=== PATIENT | female | born 1945 | race Caucasian/White ===

== ENCOUNTER 2018-09-19 12:21 | Inpatient (IN) ==
[2018-09-19] MEDS ORDERED: IOPAMIDOL 100 ML BOTTLE IV ONE (12:22)
--- NOTE | 2018-09-19 13:37 | XRay Report ---
CLINICAL INFORMATION: NG placement. 54cm at the nare. COMPARISON: 09/19/2008 1149 hours FINDINGS: NG tip overlies the expected location of the distal gastric body. Stomach and multiple loops of proximal small bowel remain moderately dilated compatible with a high-grade distal jejunal obstruction. Distal small bowel and colon are relatively decompressed. No free air IMPRESSION: NG tube overlying the distal gastric body. High-grade distal jejunal obstruction - stable Interpreted and Authenticated by: Anirudh Carlton 09/19/18
[2018-09-19 14:00] LABS: Basophils # (Auto) 0 K/mcL (0.0-0.3); Basophils % (Auto) 0.1 % (0.0-2.0); Eosinophils # (Auto) 0 K/mcL (0.0-0.7); Eosinophils % (Auto) 0 % (0.0-7.0); Granulocytes % (Auto) 85.8 % (38.0-78.0); Lymphocytes # (Auto) 0.8 K/mcL (1.5-4.8); Lymphocytes % (Auto) 7.2 % (15.5-49.0); Mean Cell Volume 94.9 fL (80.0-100.0); Mean Corpuscular HGB Conc 33.3 g/dL (31.0-36.0); Mean Corpuscular Hemoglobin 31.6 pg (26.0-34.0); Monocytes # (Auto) 0.7 K/mcL (0.1-0.9); Monocytes % (Auto) 6.9 % (1.0-12.0); Platelet Count 244 K/mcL (140-440); RBC 5.38 M/mcL (4.00-5.20); Red Cell Distribution Width 15.5 % (11.5-14.5)
[2018-09-19 14:18] LABS: ALT/SGPT 22 U/l (0-40); Albumin 4.3 gm/dL (3.2-5.2); Albumin/Globulin Ratio 1.7 (1.0-2.3); Alkaline Phosphatase 53 U/L (39-117); Blood Urea Nitrogen 10 mg/dl (8-23); Lipase 54 U/L (7-60)
--- NOTE | 2018-09-19 14:30 | Emergency Department Note ---
Abdominal Pain HPI - General Chief Complaint: Abdominal Pain Stated Complaint: abd pain Time Seen by Provider: 09/19/18 12:29 Source: patient Mode of arrival: ambulatory Limitations: no limitations - History of Present Illness HPI Narrative: 72-year-old female presents with abdominal pain and nausea and vomiting. This all started Wednesday morning when she was flying back from [place]. States she had a little lot of abdominal pain and then bowel movements extremely frequently and since she was flying back she took some Pepto. States ever since that time anytime she tries to eat or drink anything she vomits and she has constant abdominal pain. No fever or chills. No diarrhea. No cough or cold symptoms. No other home treatments since Wednesday. Associated symptoms: Reports: nausea, vomiting. Denies: fever, chills, dysuria - Related Data Home Medications Medication Instructions Recorded Confirmed cholecalciferol (vitamin D3) 1,000 units PO DAILY 03/12/16 09/19/18 folic acid 2 tab PO DAILY 03/12/16 09/19/18 glucosamine HCl 1 tab PO QDAY 03/12/16 09/19/18 multivitamin tablet 1 tab-cap PO QDAY 03/12/16 09/19/18 omega-3 fatty acids-fish oil 1 tab PO DAILY 03/12/16 09/19/18 aspirin 81 mg tablet,delayed 81 mg PO QDAY 03/31/16 09/19/18 release hydroxychloroquine 200 mg tablet 400 mg PO BID tab 03/31/16 09/19/18 methotrexate sodium 2.5 mg tablet 2.5 mg PO .COMPLEX tab 04/16/17 09/19/18 polyethylene glycol 3350 17 gram 17 g PO QDAY 01/12/18 09/19/18 oral powder packet Previous Rx's Medication Instructions Recorded E2-E3 20/80 1mg/g 0.5 g TOPICAL .QOD #60 g 01/21/18 levothyroxine 50 mcg tablet 50 mcg PO QDAY #30 tab 04/11/18 atorvastatin 40 mg tablet 40 mg PO QDAY #90 tab 06/20/18 mirabegron ER 25 mg 25 mg PO QDAY #30 tab 07/01/18 tablet,extended release 24 hr Allergies Allergy/AdvReac Type Severity Reaction Status Date / Time latex Allergy Unknown Unknown Verified 09/19/18 12:25 morphine Allergy Unknown Unknown Verified 09/19/18 12:25 tape Allergy Unknown Rash Uncoded 09/07/18 08:48 Review of Systems All systems ED: reviewed and negative except as stated. Abdominal Pain PMH - Past Medical History [facility] Narrative: Medical History (Last Reviewed 09/19/18 @ 11:30 by Ruthie Arita DO) Constipation, chronic (Chronic) Encounter for wellness examination (Chronic) Geriatric health maintenance (Chronic) Superficial injury of cornea (Chronic) Partial blindness (Chronic) Osteoarthritis (Chronic) Hypothyroidism (Chronic) High cholesterol (Chronic) Hearing loss (Chronic) Vitreous floater (Chronic) Atrophic vaginitis (Chronic) Acid reflux (Chronic) Acute maxillary sinusitis (Acute) Thyroid disorder (Chronic) Pain in joint of left knee (Chronic) Hyperlipidemia (Chronic) Arthritis (Chronic) Rheumatoid arthritis (Chronic) History of tobacco use (Chronic) Past Surgical History (Last Reviewed 09/07/18 @ 11:07 by JIM Asif) H/O breast biopsy (Chronic) History of appendectomy (Chronic) History of colonoscopy (Chronic) History of hysterectomy (Chronic) History of nasal surgery (Chronic) History of right breast biopsy (Chronic) S/P cervical spinal fusion (Chronic) Medical history: Reports: arthritis, hyperlipidemia, thyroid disease - Social History Smoking status: Never smoker Alcohol use: Reports: Rarely Drug use: Reports: none Physical Exam Limitations: no limitations General appearance: alert, in no apparent distress Head: atraumatic, normocephalic, normal inspection Eye: Present: normal appearance. Absent: conjunctival injection ENT: mucous membranes moist Chest: Present: symmetric chest wall rise Respiratory: Present: normal lung sounds bilaterally. Absent: respiratory distress, rales/crackles, accessory muscle use Cardiovascular: Present: regular rate, normal heart sounds Abdominal: Present: soft, distention (Mild diffuse abdominal distention), tenderness (Diffuse abdominal tenderness), hypoactive bowel sounds. Absent: mass Extremities: Present: normal inspection. Absent: pedal edema Neurological: Present: alert, oriented X3 Psychiatric: Present: normal affect, normal mood Skin: Present: warm, dry, intact, normal color. Absent: rash, cyanosis, diaphoresis, erythema Course Course Narrative: At [address] Saeed with surgery who agrees to accept the patient. Vital Signs Temperature 98.1 F 09/19/18 12:21 Pulse Rate 80 09/19/18 12:21 Respiratory Rate 18 09/19/18 12:21 Blood Pressure 149/96 09/19/18 12:21 Pulse Oximetry (%) 98 09/19/18 12:21 Temperature 98.1 F 09/19/18 12:21 Pulse Rate 71 09/19/18 14:09 Respiratory Rate 18 09/19/18 12:21 Blood Pressure 157/94 09/19/18 14:09 Pulse Oximetry (%) 95 09/19/18 14:09 Abdominal Pain - Lab Data Lab results reviewed: Yes I reviewed the patient's lab results. Result diagrams: 09/19/18 13:15 09/19/18 13:15 Lab Results 09/19/18 09/19/18 Range/Units 13:15 13:15 WBC 10.6 (4.5-11.0) K/mcL RBC 5.38 H (4.00-5.20) M/mcL Hgb 17.0 H (12.0-15.0) g/dL Hct 51.1 H (36.0-48.0) % POC Hct 54.0 H (36.0-48.0) % MCV 94.9 (80.0-100.0) fL MCH 31.6 (26.0-34.0) pg MCHC 33.3 (31.0-36.0) g/dL RDW 15.5 H (11.5-14.5) % Plt Count 244 (140-440) K/mcL MPV 8.8 (7.4-10.4) fL Gran % 85.8 H (38.0-78.0) % Lymph % (Auto) 7.2 L (15.5-49.0) % Dodge % (Auto) 6.9 (1.0-12.0) % Eos % (Auto) 0 (0.0-7.0) % Baso % (Auto) 0.1 (0.0-2.0) % Gran # 9.1 H (1.8-8.0) K/mcL Lymph # (Auto) 0.8 L (1.5-4.8) K/mcL Dodge # (Auto) 0.7 (0.1-0.9) K/mcL Eos # (Auto) 0 (0.0-0.7) K/mcL Baso # (Auto) 0 (0.0-0.3) K/mcL POC Sodium 136 (133-145) mmol/L Sodium 134 (133-145) mmol/L POC Potassium 3.5 (3.3-5.1) mmol/L Potassium 3.7 (3.3-5.1) mmol/L POC Chloride 95 L (96-108) mmol/L Chloride 94 L (96-108) mmol/L Carbon Dioxide 26 (22-30) mmol/L POC Total CO2 27 (22-30) mmol/L Anion Gap 14.0 (8-16) POC BUN 11 (8-23) mg/dl BUN 10 (8-23) mg/dl Creatinine 0.7 (0.6-1.1) mg/dl POC Creatinine 0.7 (0.6-1.1) mg/dl GFR Calculation 87 Glucose 120 H (70-105) mg/dL POC Glucose 121 H (70-105) mg/dL Calcium 9.7 (8.6-10.4) mg/dl POC WB Ioniz Calcium 1.17 (1.16-1.32) mmol/L Total Bilirubin 2.4 H (0.0-1.0) mg/dL AST 26 (0-37) U/l ALT 22 (0-40) U/l Alkaline Phosphatase 53 (39-117) U/L Total Protein 6.9 (5.9-8.4) gm/dL Albumin 4.3 (3.2-5.2) gm/dL Globulin 2.6 (2.2-3.7) gm/dL Albumin/Globulin Ratio 1.7 (1.0-2.3) Lipase 54 (7-60) U/L - Radiology Data Radiology results reviewed: Yes I reviewed the patient's radiology results. Disposition Pt seen by [facility] [facility]/PA only: Yes Clinical Impression: Small bowel obstruction, Nausea & vomiting, Abdominal pain Disposition: Xfer As Inpt ([facility]) Condition: Fair Referrals: Kisha Viramontes DO [Primary Care Provider] - Angelita Saeed MD [Physician] - Time of Disposition: 14:32
--- NOTE | 2018-09-19 14:54 | Cat Scan Report ---
CLINICAL INFORMATION: Abdominal pain. Small bowel obstruction COMPARISON: Abdomen and pelvic CT 04/03/2016. TECHNIQUE: Following enteric contrast, 80 cc of Isovue-300 were injected intravenously, and 60 seconds later, 0.625 mm helical slices were obtained from the mid heart through the subtrochanteric regions. Following reconstruction, 2.5 mm sagittal, coronal and axial reformatted images were processed and reviewed at bone, lung and soft tissue windows. Five minutes later, 0.625 mm helical slices were obtained from the mid heart through the kidneys and viewed at soft tissue windows.The exam was performed using radiation dose optimization techniques including, but not limited to, automated exposure control, adjustment of the mA and/or kV according to patient size and use of iterative reconstruction technique. FINDINGS: Lung bases show only minor atelectasis. No effusion. Visualized heart is mildly enlarged. Images through the abdomen show minimal fatty change within the liver. There is a 1 cm cyst in the lateral segment left hepatic lobe, but no significant focal hepatic lesions. The gallbladder and bile ducts are normal: CBD is 5 mm. Both kidneys, adrenal glands, spleen, pancreas and aorta, including aortic branches, are normal in size, configuration and attenuation without focal lesion. Images through the pelvis show urinary bladder to be unremarkable.. Uterus is surgically absent. NG tube is in satisfactory position with the tip in the gastric antrum. The stomach, duodenum and multiple loops of jejunum are moderately dilated to the distal jejunum where there is abrupt narrowing due to adhesion or stricture. The distal jejunum and ileum are moderately decompressed. Moderate free fluid is noted in the abdomen and pelvis is compatible with third spacing. There is no free air or adenopathy. Bone windows show only degeneration in the lower lumbar spine IMPRESSION: High-grade distal jejunal obstruction ostensibly related to adhesion or stricture. Moderate free fluid compatible early third spacing. No evidence of free air. NG tube in satisfactory position within the stomach Interpreted and Authenticated by: Anirudh Carlton 09/19/18
[2018-09-19] MEDS ORDERED: ONDANSETRON 4 MG/2 ML VIAL IV PRN (15:01)
[2018-09-19] MEDS ORDERED: HYDROmorphone 2 MG/ML VIAL IV PRN (15:09)
[2018-09-19] MEDS ORDERED: HYDROmorphone 2 MG/ML VIAL IV ONE (15:17)
[2018-09-19] MEDS: 0.9 % SODIUM CHLORIDE 1,000 ML IV SCH ×2 (15:48→22:19)
--- NOTE | 2018-09-19 16:04 | Emergency Department Note ---
ED Note Addendum Note Addendum: I saw this patient with Chacha FERNANDEZ. I agree with her evaluation management documentation. In particular I reviewed her x-ray and CT scan and recommended admission
--- NOTE | 2018-09-19 16:09 | General Surg History&Physical ---
History of Present Illness Patient information: Note initiated : 09/19/18 at 4:06 pm Service Date, if different from initiated Date: [] Patient: Isaura Jarrell a 72 y/o F admitted on 09/19/18 for abd pain. Chief Complaint: [aabdominal pain nausea and vomiting] HPI: Ms. Jarrell is a 72 year old F developed recurrent severe abdominal pain on the Wednesday morning. This was followed by nausea and she had multiple loose bowel movements over the next few hours.. By midday her bowel movements ceased but she was still having pain.. The pain is improved during the night and the patient flew back from [place] to home on yesterday. She stayed in bed yesterday but her pain became much worse. This morning she tried to eat and had multiple episodes of vomiting. Her pain also increased. This prompted her to come to the [facility] where it was noted that she had a distended abdomen.. She was referred to the emergency room where x- rays revealed multiple dilated loops of small bowel.CT scans confirm dilated loops of proximal small bowel suggestive of small bowel obstruction.. Patient has had appendectomy and hysterectomy abdominal procedures in the past. She had a normal colonoscopy in June 2017. Review of Systems - Constitutional malaise, weakness, no chills, no fever(s) - EENT Eyes: bilateral: blurred vision, loss of vision Ears: bilateral: decreased hearing Nose, mouth and throat: abnormal hearing, no dizziness, no neck pain, no throat swelling - Breasts no mass, no swelling - Cardiovascular no chest pain at rest, no dyspnea on exertion, no palpatations, no rapid heart rate, no syncope - Respiratory no cough, no dyspnea on exertion, no chest congestion, no excessive phlegm production - Gastrointestinal abdominal pain, belching, bloating, change in bowel habits, change in stool character, constipation, heartburn, loose stools, nausea, vomiting - Genitourinary Genitourinary: post void dribbling, urinary incontinence, no difficulty urinating, no urinary hesitancy, no urinary urgency - Musculoskeletal arthralgias, myalgias - Integumentary no changing lesions, no non-healing lesions, no pruritus, no rash - Neurological no abnormal gait, no abnormal hearing, no confusion, no dizziness, no numbness, no syncope, no tremor(s), no vertigo - Psychiatric no anxiety, no depression - Endocrine no cold intolerance, no fatigue, no palpitations - Hematologic/Lymphatic no easy bleeding, no easy bruising, no lymphadenopathy - Allergic/Immunologic no tongue swelling, no throat swelling, no uticaria, no wheezing, no lip swelling Medications and Allergies Home Medications Medication Instructions Recorded Confirmed Type cholecalciferol (vitamin D3) 1,000 units PO DAILY 03/12/16 09/19/18 History folic acid 2 tab PO DAILY 03/12/16 09/19/18 History glucosamine HCl 1 tab PO QDAY 03/12/16 09/19/18 History multivitamin tablet 1 tab-cap PO QDAY 03/12/16 09/19/18 History omega-3 fatty acids-fish oil 1 tab PO DAILY 03/12/16 09/19/18 History aspirin 81 mg tablet,delayed 81 mg PO QDAY 03/31/16 09/19/18 History release hydroxychloroquine 200 mg tablet 400 mg PO BID tab 03/31/16 09/19/18 History methotrexate sodium 2.5 mg tablet 2.5 mg PO .COMPLEX tab 04/16/17 09/19/18 History polyethylene glycol 3350 17 gram 17 g PO QDAY 01/12/18 09/19/18 History oral powder packet E2-E3 20/80 1mg/g 0.5 g TOPICAL .QOD #60 g 01/21/18 09/19/18 Rx levothyroxine 50 mcg tablet 50 mcg PO QDAY #30 tab 04/11/18 09/19/18 Rx atorvastatin 40 mg tablet 40 mg PO QDAY #90 tab 06/20/18 09/19/18 Rx mirabegron ER 25 mg 25 mg PO QDAY #30 tab 07/01/18 09/19/18 Rx tablet,extended release 24 hr Allergies Allergy/AdvReac Type Severity Reaction Status Date / Time morphine Allergy Mild Rash Verified 09/19/18 15:24 latex Allergy Unknown Unknown Verified 09/19/18 12:25 tape Allergy Unknown Rash Uncoded 09/07/18 08:48 Exam Temp Pulse Resp BP Pulse Ox 98.1 F 83 18 153/91 97 09/19/18 15:41 09/19/18 15:41 09/19/18 15:41 09/19/18 15:41 09/19/18 15:41 - General physical appearance well developed, well nourished, no distress - Eyes PERRL, normal ocular movement, other (decreased vision) - ENT normal pinna, normal nares, normal mucosa, no congestion, decreased hearing - Head Head exam IM: Present: atraumatic, normal inspection, normocephalic - Neck no masses, no bruits, trachea midline, no lymphadenopathy, no venous distension - Cardiovascular Cardiovascular exam IM: Present: normal rate and rhythm, RRR, +S1, +S2. Absent : irregular rhythm, JVD, tachycardia - Respiratory normal expansion, normal respiratory effort, clear to auscultation - Abdomen Abdomen: Present: soft, bowel sounds, distended (abdomen is distended but with good active bowel sounds;; she has midabdominal tenderness but without guarding or rebound. No mass noted) Hernia: Present: none - Genitourinary Present: normal external genitalia - Integumentary Present: no rash, no growths, no abnormal pigmentation - Neurologic Present: normal coordination, normal sensation - Musculoskeletal Present: normal gait, normal posture - Psychiatric Present: oriented to time, oriented to person, oriented to place, speech is normal, memory intact Assessment and Plan (1) Partial obstruction of small intestine Small bowel follow-through will be done tonight since patient had multiple bowel movements on yesterday associated with the onset of her symptoms Nasogastric decompression will be carried out while the small bowel follow- through has been completed Status: Acute (2) Chronic idiopathic constipation Status: Acute (3) Osteoarthritis Continue home medications once her intestinal problem is corrected Status: Chronic
--- NOTE | 2018-09-19 16:18 | XRay Report ---
CLINICAL INFORMATION: PREOP EVALUATION COMPARISON: 06/29/2017 FINDINGS: Heart size is accentuated by rightward rotation and within normal limits. NG tube overlies the gastric antrum. Tortuous thoracic aorta is noted remainder the mediastinum and pulmonary vessels are normal. Is minor bibasilar atelectasis. No effusions IMPRESSION: Mild bibasilar atelectasis. Interpreted and Authenticated by: Anirudh Cralton 09/19/18
[2018-09-19] MEDS: HYDROmorphone 2 MG/ML VIAL IV PRN ×4 (16:42→22:58)
[2018-09-19] MEDS: PIPERACILLIN SODIUM/TAZOBACTAM 3.375 GM in DEXTROSE 5% IN WATER 50 ML IV SCH ×2 (17:19→21:18)
[2018-09-19] MEDS: METOCLOPRAMIDE 10 MG/2 ML VIAL IV SCH (17:58)
[2018-09-19 18:48] LABS: Appearance,Urine CLEAR; Bilirubin,Urine NEG (NEG); Color,Urine YELLOW; Glucose,Urine (UA) NEGATIVE (NEG); Leukocyte Esterase,Urine NEG /uL (NEG); Protein,Urine NEG (NEG); Specific Gravity,Urine 1.028 (1.000-1.035); Urine Blood NEG mg/dL (<0.03); Urobilinogen,Urine NEG (NEG)
[2018-09-19] MEDS: 0.9 % SODIUM CHLORIDE 10 ML SYRINGE IV SCH (22:18)
[2018-09-20] MEDS: 0.9 % SODIUM CHLORIDE 1,000 ML IV SCH ×4 (00:58→17:04)
[2018-09-20] MEDS: HYDROmorphone 2 MG/ML VIAL IV PRN ×6 (00:59→12:21)
[2018-09-20] MEDS: METOCLOPRAMIDE 10 MG/2 ML VIAL IV SCH ×5 (00:59→23:33)
[2018-09-20] MEDS: PIPERACILLIN SODIUM/TAZOBACTAM 3.375 GM in DEXTROSE 5% IN WATER 50 ML IV SCH ×5 (00:59→23:33)
[2018-09-20] MEDS: 0.9 % SODIUM CHLORIDE 10 ML SYRINGE IV SCH ×3 (06:13→20:16)
--- NOTE | 2018-09-20 06:38 | XRay Report ---
CLINICAL INFORMATION: High-grade distal jejunal obstruction. COMPARISON: Abdomen and pelvic CT 09/19/2018. TECHNIQUE: Following director airport film, water-soluble contrast was administered via NG tube and serial imaging was obtained over 12 hours FINDINGS: NG tube remains in satisfactory position with the tip in the gastric antrum. Stomach is dilated but demonstrates normal rugal fold pattern without focal lesion. The duodenum and multiple loops of jejunum are markedly dilated to the level of high-grade obstruction at the of the distal jejunum. Five hours after administering enteric contrast, there is no opacification of the ileum or colon. IMPRESSION: High-grade distal jejunal obstruction ostensibly due to adhesions or stricture. Five hour film shows no opacification of the ileum or colon. Interpreted and Authenticated by: Anirudh Carlton 09/20/18
[2018-09-20 06:49] LABS: Basophils # (Auto) 0 K/mcL (0.0-0.3); Basophils % (Auto) 0.2 % (0.0-2.0); Eosinophils # (Auto) 0 K/mcL (0.0-0.7); Eosinophils % (Auto) 0 % (0.0-7.0); Granulocytes % (Auto) 78.8 % (38.0-78.0); Lymphocytes # (Auto) 0.8 K/mcL (1.5-4.8); Lymphocytes % (Auto) 8.2 % (15.5-49.0); Mean Cell Volume 95.9 fL (80.0-100.0); Mean Corpuscular HGB Conc 33.1 g/dL (31.0-36.0); Mean Corpuscular Hemoglobin 31.7 pg (26.0-34.0); Monocytes # (Auto) 1.2 K/mcL (0.1-0.9); Monocytes % (Auto) 12.8 % (1.0-12.0); Platelet Count 257 K/mcL (140-440); RBC 5.32 M/mcL (4.00-5.20); Red Cell Distribution Width 15.2 % (11.5-14.5)
[2018-09-20 07:22] LABS: ALT/SGPT 19 U/l (0-40); Albumin 3.7 gm/dL (3.2-5.2); Albumin/Globulin Ratio 1.5 (1.0-2.3); Alkaline Phosphatase 48 U/L (39-117); Bilirubin,Direct 0.3 mg/dL (0.0-0.3); Blood Urea Nitrogen 16 mg/dl (8-23); Gamma Glutamyl Transpeptidase 14 U/L (5-36)
--- NOTE | 2018-09-20 08:38 | XRay Report ---
CLINICAL INFORMATION: Distal small bowel obstruction. COMPARISON: Small bowel follow-through study performed one day prior. FINDINGS: Film, taken one day following small bowel follow-through study, shows NG tip in stable position overlying the gastric antrum. The stomach, duodenum and proximal jejunum are decompressed following resumption of NG suction. Enteric contrast, given for the small bowel follow-through study yesterday, persists within moderately dilated distal jejunum and proximal ileum. The distal ileum and colon are completely decompressed IMPRESSION: Persistent high-grade distal small bowel obstruction. Following resumption of NG suction, the stomach, duodenum and proximal jejunum are moderately decompressed Interpreted and Authenticated by: Anirudh Carlton 09/20/18
--- NOTE | 2018-09-20 12:33 | General Surgery Progress Note ---
Subjective Patient reports: still having pain, no flatus, no bowel movement, afebrile Narrative: Note initiated : 09/20/18 at 12:28 pm Service Date, if different from initiated Date: [] Patient: Isaura Jarrell 72 y/o F admitted on 09/19/18 for abd pain. Chief Complaint: [ patient had significant pain throughout the night. She had nausea until her nasogastric tube was reconnected. She has not had any flatus or bowel movement. upper GI series with small bowel follow-through shows no contrast in the colon after 12 hours. She had 2600 cc output after she was back to suction.. Patient is advised that she has complete obstruction and needs a laparotomy.. She gives her consent and she will be scheduled later today.] Objective Temp Pulse Resp BP Pulse Ox 97.2 F 87 16 122/83 92 09/20/18 06:58 09/20/18 06:58 09/20/18 06:58 09/20/18 06:58 09/20/18 06:58 - Additional Data Intake & Output - Last 24 hours: Intake & Output 09/18/18 09/19/18 09/20/18 09/21/18 05:59 05:59 05:59 05:59 Intake Total 1250 / 1250 1050 / 1050 Output Total 3777 / 3777 Balance -2527 / -2527 1050 / 1050 Weight 148 lb - General physical appearance well developed, well nourished, no distress - Eyes PERRL, normal ocular movement - ENT normal pinna, normal nares, normal mucosa, no hearing loss, no congestion - Neck no masses, no bruits, trachea midline, no lymphadenopathy, no venous distension - Respiratory normal expansion, normal respiratory effort, clear to auscultation - Cardiovascular Cardiovascular exam: Present: normal rate and rhythm, RRR, +S1, +S2. Absent: JVD, tachycardia - Abdomen tender, distended (diffusely tender abdomen with marked distention;;;;;;;;;;;;; ;;; hyperactive bowel sounds) - Integumentary no rash, no growths, no abnormal pigmentation - Neurologic normal coordination, normal sensation - Musculoskeletal normal gait, normal posture - Psychiatric oriented to time, oriented to person, oriented to place, speech is normal, memory intact - Labs 09/20/18 05:00 09/20/18 05:15 Diabetes panel 09/19/18 09/20/18 Range/Units 13:15 05:15 Sodium 134 144 (133-145) mmol/L Potassium 3.7 3.6 (3.3-5.1) mmol/L Chloride 94 L 101 (96-108) mmol/L Carbon Dioxide 26 28 (22-30) mmol/L BUN 10 16 (8-23) mg/dl Creatinine 0.7 0.7 (0.6-1.1) mg/dl Glucose 120 H 124 H (70-105) mg/dL Calcium 9.7 9.5 (8.6-10.4) mg/dl AST 26 19 (0-37) U/l ALT 22 19 (0-40) U/l Alkaline Phosphatase 53 48 (39-117) U/L Total Protein 6.9 6.1 (5.9-8.4) gm/dL Albumin 4.3 3.7 (3.2-5.2) gm/dL Triglycerides 54 (<150) mg/dl Calcium panel 09/19/18 09/20/18 Range/Units 13:15 05:15 Calcium 9.7 9.5 (8.6-10.4) mg/dl Phosphorus 4.9 H (2.7-4.5) mg/dL Albumin 4.3 3.7 (3.2-5.2) gm/dL Pituitary panel 09/19/18 09/20/18 Range/Units 13:15 05:15 Sodium 134 144 (133-145) mmol/L Potassium 3.7 3.6 (3.3-5.1) mmol/L Chloride 94 L 101 (96-108) mmol/L Carbon Dioxide 26 28 (22-30) mmol/L BUN 10 16 (8-23) mg/dl Creatinine 0.7 0.7 (0.6-1.1) mg/dl Glucose 120 H 124 H (70-105) mg/dL Calcium 9.7 9.5 (8.6-10.4) mg/dl Adrenal panel 09/19/18 09/20/18 Range/Units 13:15 05:15 Sodium 134 144 (133-145) mmol/L Potassium 3.7 3.6 (3.3-5.1) mmol/L Chloride 94 L 101 (96-108) mmol/L Carbon Dioxide 26 28 (22-30) mmol/L BUN 10 16 (8-23) mg/dl Creatinine 0.7 0.7 (0.6-1.1) mg/dl Glucose 120 H 124 H (70-105) mg/dL Calcium 9.7 9.5 (8.6-10.4) mg/dl Total Bilirubin 2.4 H 2.4 H (0.0-1.0) mg/dL AST 26 19 (0-37) U/l ALT 22 19 (0-40) U/l Alkaline Phosphatase 53 48 (39-117) U/L Total Protein 6.9 6.1 (5.9-8.4) gm/dL Albumin 4.3 3.7 (3.2-5.2) gm/dL Assessment and Plan (1) Partial obstruction of small intestine Status: Acute Assessment and plan: Patient counseled for exploratory laparotomy with probable adhesion lysis.. There will be done later today Current Visit: Yes (2) Chronic idiopathic constipation Status: Acute Current Visit: Yes (3) Osteoarthritis Status: Chronic Current Visit: No - Time Spent With Patient Total time spent is greater than 50% in coordination of care (as documented) at patient's floor/unit and/or counseling patient:
[2018-09-20] MEDS ORDERED: MIDAZOLAM 2 MG/2 ML VIAL IV ONE (13:50)
[2018-09-20] MEDS ORDERED: METOPROLOL TARTRATE 5 MG/5 ML VIAL IV ONE (13:50)
[2018-09-20] MEDS ORDERED: LIDOCAINE HCL/PF 100 MG/5 ML SYRINGE IV ONE (13:50)
[2018-09-20] MEDS ORDERED: PHENYLEPHRINE 10 MG/ML VIAL IV ONE (13:50)
[2018-09-20] MEDS ORDERED: GLYCOPYRROLATE 0.2 MG/ML VIAL IV ONE (13:50)
[2018-09-20] MEDS ORDERED: KETAMINE 100 MG/ML ML IV ONE (13:50)
[2018-09-20] MEDS ORDERED: fentaNYL 100 MCG/2 ML VIAL IV ONE (13:50)
[2018-09-20] MEDS ORDERED: PROPOFOL 200 MG/20 ML VIAL IV ONE (13:50)
[2018-09-20] MEDS ORDERED: ONDANSETRON 4 MG/2 ML VIAL IV ONE (13:50)
[2018-09-20] MEDS ORDERED: ROCURONIUM 10 MG/ML ML IV ONE (13:50)
[2018-09-20] MEDS ORDERED: IPRATROPIUM/ALBUTEROL 3 ML AMPUL.NEB NEB PRN ×2 (14:42→14:47)
[2018-09-20] MEDS ORDERED: HYDROmorphone 2 MG/ML VIAL IV PRN (14:47)
[2018-09-20] MEDS ORDERED: KETOROLAC 15 MG/ML VIAL IV PRN (14:47)
[2018-09-20] MEDS ORDERED: MEPERIDINE 25 MG/ML SYRINGE IV PRN (14:47)
[2018-09-20] MEDS ORDERED: fentaNYL 100 MCG/2 ML VIAL IV PRN (14:47)
[2018-09-20] MEDS ORDERED: BENZOCAINE/MENTHOL 1 LOZENGE PO PRN (14:47)
[2018-09-20] MEDS ORDERED: ACETAMINOPHEN 1,000 MG/100 ML BOTTLE IV ONE (14:47)
[2018-09-20] MEDS ORDERED: ONDANSETRON 4 MG/2 ML VIAL IV PRN ×2 (14:47→16:40)
[2018-09-20] MEDS ORDERED: LACTATED RINGERS 1,000 ML IV SCH ×2 (15:00→16:40)
--- NOTE | 2018-09-20 15:24 | Brief Operative Note ---
Date of procedure: 09/20/18 Pre-op diagnosis: SMALL BOWEL OBSTRUCTION Post-op diagnosis: other (SMALL BOWEL OBSTRUCTION DUE TO DENSE ADHESIONS AND INTERNAL HERNIA) Procedure: EXPLORATORY LAPAROTOMY WITH ADHESIOLYSIS Grafts/Implants: No Anesthesia: GETA Findings: DENSE ADHESIONS BETWEEN LEFT OVARIAN TUBE AND SMALL BOWEL MESENTERY CAUSING OBSTRUCTION OF TERMINAL ILEUM DENSE ADHESIONS BETWEEN GREATER OMENTUM AND SIGMOID COLON WITH INTERNAL HERNIA CAUSING OBSTRUCTION OF MID GUT AND MESENTERY Complications: none Surgeon: Angelita Saeed Estimated blood loss (cc): 100 Specimens Removed/Pathology: none sent Condition: stable Disposition: PACU
[2018-09-20] MEDS ORDERED: METOCLOPRAMIDE 10 MG/2 ML VIAL IV SCH (18:00)
[2018-09-21] MEDS: 0.9 % SODIUM CHLORIDE 1,000 ML IV SCH ×5 (02:40→23:28)
[2018-09-21] MEDS: HYDROmorphone 2 MG/ML VIAL IV PRN ×2 (04:17→10:38)
[2018-09-21] MEDS: PIPERACILLIN SODIUM/TAZOBACTAM 3.375 GM in DEXTROSE 5% IN WATER 50 ML IV SCH ×4 (05:39→23:29)
[2018-09-21] MEDS: 0.9 % SODIUM CHLORIDE 10 ML SYRINGE IV SCH ×3 (05:39→21:39)
[2018-09-21] MEDS: METOCLOPRAMIDE 10 MG/2 ML VIAL IV SCH ×4 (05:39→23:54)
[2018-09-21 06:46] LABS: Basophils # (Auto) 0 K/mcL (0.0-0.3); Basophils % (Auto) 0.2 % (0.0-2.0); Eosinophils # (Auto) 0 K/mcL (0.0-0.7); Eosinophils % (Auto) 0 % (0.0-7.0); Granulocytes % (Auto) 80.7 % (38.0-78.0); Lymphocytes # (Auto) 0.6 K/mcL (1.5-4.8); Lymphocytes % (Auto) 9.3 % (15.5-49.0); Mean Cell Volume 96.3 fL (80.0-100.0); Mean Corpuscular HGB Conc 33.4 g/dL (31.0-36.0); Mean Corpuscular Hemoglobin 32.2 pg (26.0-34.0); Monocytes # (Auto) 0.7 K/mcL (0.1-0.9); Monocytes % (Auto) 9.8 % (1.0-12.0); Platelet Count 200 K/mcL (140-440); RBC 4.52 M/mcL (4.00-5.20); Red Cell Distribution Width 15.3 % (11.5-14.5)
[2018-09-21 07:36] LABS: ALT/SGPT 15 U/l (0-40); Albumin 2.9 gm/dL (3.2-5.2); Albumin/Globulin Ratio 1.4 (1.0-2.3); Alkaline Phosphatase 35 U/L (39-117); Bilirubin,Direct 0.9 mg/dL (0.0-0.3); Blood Urea Nitrogen 25 mg/dl (8-23); Gamma Glutamyl Transpeptidase 21 U/L (5-36); Uric Acid 3.6 mg/dL (2.5-8.0)
--- NOTE | 2018-09-21 13:10 | General Surgery Progress Note ---
Subjective Patient reports: feels better, still having pain, no flatus, no bowel movement, afebrile Narrative: Note initiated : 09/21/18 at 1:10 pm Service Date, if different from initiated Date: [] Patient: Isaura Jarrell 72 y/o F admitted on 09/19/18 for abd pain. Chief Complaint: [patient states that she feels better. The pain that she has now is different than the pain that she had previously and is less intense. She denies nausea. She has not had flatus. sHE HAS BEEN AFEBRILE.her white blood count is 6.9 and hemoglobin is 14.6.. BUN is elevated at 25 but creatinine is normal.. Urine output is decreased.. SHE COMPLAINS OF INSOMNIA.] Objective Temp Pulse Resp BP Pulse Ox 97.6 F 100 H 18 114/73 95 09/21/18 08:00 09/21/18 08:00 09/21/18 08:00 09/21/18 08:00 09/21/18 08:00 - Additional Data Intake & Output - Last 24 hours: Intake & Output 09/19/18 09/20/18 09/21/18 09/22/18 05:59 05:59 05:59 05:59 Intake Total 1250 / 1250 4020 / 4020 1050 / 1050 Output Total 3777 / 3777 845 / 845 150 / 150 Balance -2527 / -2527 3175 / 3175 900 / 900 Weight 148 lb 143 lb 8 oz - General physical appearance well developed, well nourished, no distress, moderate pain - Eyes PERRL, normal ocular movement - ENT normal pinna (*), normal nares, normal mucosa (Antibiotic), no hearing loss, no congestion - Neck no masses, no bruits, trachea midline, no lymphadenopathy, no venous distension - Respiratory normal expansion (ssssssssssssshe just), normal respiratory effort, clear to auscultation - Cardiovascular Cardiovascular exam: Present: normal rate and rhythm, RRR, +S1, +S2. Absent: JVD, tachycardia - Abdomen tender, distended (aabdomen is distended with hypoactive bowel sounds; she has anticipated tenderness) - Integumentary no rash, no growths, no abnormal pigmentation - Neurologic normal coordination, normal sensation - Musculoskeletal normal gait, normal posture - Psychiatric oriented to time - Labs 09/21/18 04:15 09/21/18 04:15 Diabetes panel 09/21/18 Range/Units 04:15 Sodium 146 H (133-145) mmol/L Potassium 3.5 (3.3-5.1) mmol/L Chloride 104 (96-108) mmol/L Carbon Dioxide 29 (22-30) mmol/L BUN 25 H (8-23) mg/dl Creatinine 1.1 (0.6-1.1) mg/dl Glucose 98 (70-105) mg/dL Calcium 8.4 L (8.6-10.4) mg/dl AST 19 (0-37) U/l ALT 15 (0-40) U/l Alkaline Phosphatase 35 L (39-117) U/L Total Protein 5.0 L (5.9-8.4) gm/dL Albumin 2.9 L (3.2-5.2) gm/dL Triglycerides 54 (<150) mg/dl Calcium panel 09/21/18 Range/Units 04:15 Calcium 8.4 L (8.6-10.4) mg/dl Phosphorus 3.4 (2.7-4.5) mg/dL Albumin 2.9 L (3.2-5.2) gm/dL Pituitary panel 09/21/18 Range/Units 04:15 Sodium 146 H (133-145) mmol/L Potassium 3.5 (3.3-5.1) mmol/L Chloride 104 (96-108) mmol/L Carbon Dioxide 29 (22-30) mmol/L BUN 25 H (8-23) mg/dl Creatinine 1.1 (0.6-1.1) mg/dl Glucose 98 (70-105) mg/dL Calcium 8.4 L (8.6-10.4) mg/dl Adrenal panel 09/21/18 Range/Units 04:15 Sodium 146 H (133-145) mmol/L Potassium 3.5 (3.3-5.1) mmol/L Chloride 104 (96-108) mmol/L Carbon Dioxide 29 (22-30) mmol/L BUN 25 H (8-23) mg/dl Creatinine 1.1 (0.6-1.1) mg/dl Glucose 98 (70-105) mg/dL Calcium 8.4 L (8.6-10.4) mg/dl Total Bilirubin 3.8 H (0.0-1.0) mg/dL AST 19 (0-37) U/l ALT 15 (0-40) U/l Alkaline Phosphatase 35 L (39-117) U/L Total Protein 5.0 L (5.9-8.4) gm/dL Albumin 2.9 L (3.2-5.2) gm/dL Assessment and Plan (1) Partial obstruction of small intestine Status: Acute Assessment and plan: Clinically stable postoperative day #1 Current Visit: Yes (2) Chronic idiopathic constipation Status: Acute Current Visit: Yes (3) Osteoarthritis Status: Chronic Current Visit: No - Time Spent With Patient Total time spent is greater than 50% in coordination of care (as documented) at patient's floor/unit and/or counseling patient:
--- NOTE | 2018-09-21 16:09 | Operative Note ---
DATE OF OPERATION: 09/20/2018 PREOPERATIVE DIAGNOSIS: Small-bowel obstruction. POSTOPERATIVE DIAGNOSIS: Small-bowel obstruction due to dense adhesion and internal hernia. PROCEDURE: Exploratory laparotomy with adhesiolysis. SURGEON: Angelita Saeed M.D. FINDINGS: Dense adhesions between the left ovarian complex tube and small bowel mesentery with a fibrotic obstruction of the terminal ileum. Dense adhesions of multiple loops of terminal ileum and jejunum. Dense adhesions between the greater omentum and sigmoid colon with creation of an internal hernia through which the small bowel and mesentery had partial volvulus and obstruction. Mild ischemia of midgut with ecchymosis that improved after the partial volvulus was reduced. DESCRIPTION OF PROCEDURE: Under general anesthesia, the patient's abdomen was prepped and draped in the sterile field. Midline incision was made. Upon entering the abdomen, there was a moderate amount of peritoneal fluid that was suctioned free. It was clear and diaz colored. There were loops of small bowel adherent to the anterior abdominal wall which were taken down with Metzenbaum scissors. Some omentum to the abdominal wall was also dissected with Metzenbaum scissors and electrocautery. There were massively dilated loops of small bowel that encompassed most of the bowel. There was a segment of dense adhesions between the inferior aspect of the omentum down deep into the pelvis in an area that probably represented the vaginal stump. These adhesions were well formed and were revascularized. They were fibrotic enough that they created an internal hernia and multiple small bowel loops were wrapped around this omentum causing a partial volvulus of the bowel and mesentery. The adhesions in the pelvis could not be adequately visualized, so it was elected to follow the bowel distally at its junction with the cecum. At this point, the bowel was totally decompressed. These decompressed loops appeared to be totally normal. On inspection, there was a portion of a tube and rudimentary ovary that were adherent to the ileocolonic mesentery. This tube and ovary were somewhat fibrotic and caused obstruction of the terminal ileum. The tissue on the wall of the terminal ileum was chronic and fibrotic. Using Metzenbaum scissors, the tube was the mesentery and the wall of the bowel. When this was done, the point of distal obstruction was noted. It was very fibrotic and using blunt dissection, the dense adhesions in the area were until the bowel lumen was totally freed and was widely patent. I was able to then push liquid from the more proximal bowel into the cecum without difficulty. The cecum was dilated and appeared to be unremarkable. Next, inspection of the proximal bowel was carried out. It looked cyanotic and there were areas of ecchymosis. It was still viable. The loops of bowel were curled around the omental bridge that was created between the transverse colon and the sigmoid colon. This was at the level of the sigmoid colon, and this allowed me to reduce some of the twisted mid-bowel from an internal hernia. The remainder of the omentum was densely adherent in the pelvis behind the bladder. It was from the bladder and the apex of the vagina using Metzenbaum scissors and electrocautery. This allowed the omentum to become free. The bowel that was twisted had some interloop adhesions that were lysed with Metzenbaum scissors until all of the bowel was free. I was then able to follow the bowel from the ligament of Treitz down to the ileocecal valve, and there were no other areas of obstruction. As I was examining the bowel, the vascularity in the dusky segment improved, and there was excellent peristaltic activity. Being satisfied that all of the adhesions in the areas of obstruction were free, the bowel was irrigated with warm saline. It was then placed back into the peritoneal cavity without difficulty. Sponge, needle, instrument and blade counts were verified as correct. Fascia and peritoneum were closed with running locking #1 Prolene. Subcutaneous tissue was closed with 2-0 Monocryl. Skin was closed with shorty. Tegaderm dressing was placed. The patient tolerated the procedure well. She was awakened, transferred to a bed, and taken to the postanesthetic care unit in stable, satisfactory condition. LCS:[email or web address] Job ID: [id number] Doc ID: [id number] Angelita Saeed M.D.
[2018-09-21] MEDS: diphenhydrAMINE 50 MG/ML VIAL IV SCH (21:36)
[2018-09-22] MEDS: 0.9 % SODIUM CHLORIDE 1,000 ML IV SCH ×5 (05:13→23:18)
[2018-09-22] MEDS: PIPERACILLIN SODIUM/TAZOBACTAM 3.375 GM in DEXTROSE 5% IN WATER 50 ML IV SCH ×4 (05:15→23:18)
[2018-09-22] MEDS: METOCLOPRAMIDE 10 MG/2 ML VIAL IV SCH ×4 (05:16→23:34)
[2018-09-22 05:44] LABS: Basophils # (Auto) 0 K/mcL (0.0-0.3); Basophils % (Auto) 0.3 % (0.0-2.0); Eosinophils # (Auto) 0.1 K/mcL (0.0-0.7); Eosinophils % (Auto) 1.6 % (0.0-7.0); Granulocytes % (Auto) 69.7 % (38.0-78.0); Lymphocytes # (Auto) 0.9 K/mcL (1.5-4.8); Lymphocytes % (Auto) 17.7 % (15.5-49.0); Mean Cell Volume 96.5 fL (80.0-100.0); Mean Corpuscular HGB Conc 33.7 g/dL (31.0-36.0); Mean Corpuscular Hemoglobin 32.5 pg (26.0-34.0); Monocytes # (Auto) 0.5 K/mcL (0.1-0.9); Monocytes % (Auto) 10.7 % (1.0-12.0); Platelet Count 182 K/mcL (140-440); RBC 3.67 M/mcL (4.00-5.20); Red Cell Distribution Width 15.6 % (11.5-14.5)
[2018-09-22 06:16] LABS: ALT/SGPT 19 U/l (0-40); Albumin 2.4 gm/dL (3.2-5.2); Albumin/Globulin Ratio 1.1 (1.0-2.3); Alkaline Phosphatase 37 U/L (39-117); Bilirubin,Direct 2.4 mg/dL (0.0-0.3); Blood Urea Nitrogen 18 mg/dl (8-23); Gamma Glutamyl Transpeptidase 24 U/L (5-36); Uric Acid 1.9 mg/dL (2.5-8.0)
[2018-09-22] MEDS: 0.9 % SODIUM CHLORIDE 10 ML SYRINGE IV SCH ×3 (06:28→22:07)
[2018-09-22] MEDS ORDERED: POTASSIUM PHOSPHATE 40 MEQ in DEXTROSE 5% IN WATER 500 ML IV ONE (07:23)
[2018-09-22] MEDS: POTASSIUM PHOSPHATE 40 MEQ in DEXTROSE 5% IN WATER 500 ML IV SCH ×2 (08:57→13:02)
--- NOTE | 2018-09-22 15:14 | General Surgery Progress Note ---
Subjective Patient reports: feels better, pain is less, flatus, bowel movement, afebrile Narrative: Note initiated : 09/22/18 at 3:13 pm Service Date, if different from initiated Date: [] Patient: Isaura Jarrell 72 y/o F admitted on 09/19/18 for abd pain. Chief Complaint: [patient is much improved. She states that she's not having much pain. She denies nausea. She has had flatus and multiple bowel movements.she has been afebrile. White blood count was 5.1.] Objective Temp Pulse Resp BP Pulse Ox 98.0 F 85 14 142/80 95 09/22/18 11:35 09/22/18 11:35 09/22/18 11:35 09/22/18 11:35 09/22/18 11:35 - Additional Data Intake & Output - Last 24 hours: Intake & Output 09/20/18 09/21/18 09/22/18 09/23/18 05:59 05:59 05:59 05:59 Intake Total 1250 / 1250 4020 / 4020 4948 / 4948 559 / 559 Output Total 3777 / 3777 845 / 845 1225 / 1225 Balance -2527 / -2527 3175 / 3175 3723 / 3723 559 / 559 Weight 148 lb 143 lb 8 oz 143 lb 8 oz - General physical appearance well developed, well nourished, no distress - Eyes PERRL, normal ocular movement - ENT normal pinna, normal nares, normal mucosa, no hearing loss, no congestion - Neck no masses, no bruits, trachea midline, no lymphadenopathy, no venous distension - Respiratory normal expansion, normal respiratory effort, clear to auscultation - Cardiovascular Cardiovascular exam: Present: normal rate and rhythm, RRR, +S1, +S2. Absent: JVD, tachycardia - Abdomen tender (mild incisional tenderness with good active bowel sounds), bowel sounds (present), surgical scars (none), masses (none) - Integumentary no rash, no growths, no abnormal pigmentation - Neurologic normal coordination, normal sensation - Musculoskeletal normal gait, normal posture - Psychiatric oriented to time, oriented to person, oriented to place, speech is normal, memory intact - Labs 09/22/18 04:30 09/22/18 04:30 Diabetes panel 09/22/18 Range/Units 04:30 Sodium 145 (133-145) mmol/L Potassium 3.2 L (3.3-5.1) mmol/L Chloride 110 H (96-108) mmol/L Carbon Dioxide 25 (22-30) mmol/L BUN 18 (8-23) mg/dl Creatinine 0.5 L (0.6-1.1) mg/dl Glucose 81 (70-105) mg/dL Calcium 7.6 L (8.6-10.4) mg/dl AST 27 (0-37) U/l ALT 19 (0-40) U/l Alkaline Phosphatase 37 L (39-117) U/L Total Protein 4.6 L (5.9-8.4) gm/dL Albumin 2.4 L (3.2-5.2) gm/dL Triglycerides 66 (<150) mg/dl Calcium panel 09/22/18 Range/Units 04:30 Calcium 7.6 L (8.6-10.4) mg/dl Phosphorus 1.0 L (2.7-4.5) mg/dL Albumin 2.4 L (3.2-5.2) gm/dL Pituitary panel 09/22/18 Range/Units 04:30 Sodium 145 (133-145) mmol/L Potassium 3.2 L (3.3-5.1) mmol/L Chloride 110 H (96-108) mmol/L Carbon Dioxide 25 (22-30) mmol/L BUN 18 (8-23) mg/dl Creatinine 0.5 L (0.6-1.1) mg/dl Glucose 81 (70-105) mg/dL Calcium 7.6 L (8.6-10.4) mg/dl Adrenal panel 09/22/18 Range/Units 04:30 Sodium 145 (133-145) mmol/L Potassium 3.2 L (3.3-5.1) mmol/L Chloride 110 H (96-108) mmol/L Carbon Dioxide 25 (22-30) mmol/L BUN 18 (8-23) mg/dl Creatinine 0.5 L (0.6-1.1) mg/dl Glucose 81 (70-105) mg/dL Calcium 7.6 L (8.6-10.4) mg/dl Total Bilirubin 5.8 H (0.0-1.0) mg/dL AST 27 (0-37) U/l ALT 19 (0-40) U/l Alkaline Phosphatase 37 L (39-117) U/L Total Protein 4.6 L (5.9-8.4) gm/dL Albumin 2.4 L (3.2-5.2) gm/dL Assessment and Plan (1) Partial obstruction of small intestine Status: Acute Assessment and plan: Clinically stable postoperative day #2 DC NG tube DC Sepulveda catheter Clear liquid diet Current Visit: Yes (2) Chronic idiopathic constipation Status: Acute Current Visit: Yes (3) Osteoarthritis Status: Chronic Current Visit: No - Time Spent With Patient Total time spent is greater than 50% in coordination of care (as documented) at patient's floor/unit and/or counseling patient:
[2018-09-22] MEDS: diphenhydrAMINE 50 MG/ML VIAL IV SCH (22:03)
[2018-09-23] MEDS: HYDROmorphone 2 MG/ML VIAL IV PRN (03:48)
[2018-09-23] MEDS: 0.9 % SODIUM CHLORIDE 1,000 ML IV SCH ×5 (05:59→21:48)
[2018-09-23 06:00] LABS: Basophils # (Auto) 0 K/mcL (0.0-0.3); Basophils % (Auto) 0.3 % (0.0-2.0); Eosinophils # (Auto) 0.2 K/mcL (0.0-0.7); Granulocytes % (Auto) 71.1 % (38.0-78.0); Lymphocytes # (Auto) 0.9 K/mcL (1.5-4.8); Lymphocytes % (Auto) 16.1 % (15.5-49.0); Mean Cell Volume 95.5 fL (80.0-100.0); Mean Corpuscular HGB Conc 33.2 g/dL (31.0-36.0); Mean Corpuscular Hemoglobin 31.7 pg (26.0-34.0); Monocytes # (Auto) 0.5 K/mcL (0.1-0.9); Monocytes % (Auto) 9.5 % (1.0-12.0); Platelet Count 187 K/mcL (140-440); RBC 3.45 M/mcL (4.00-5.20); Red Cell Distribution Width 14.7 % (11.5-14.5)
[2018-09-23] MEDS: METOCLOPRAMIDE 10 MG/2 ML VIAL IV SCH ×3 (06:02→17:15)
[2018-09-23] MEDS: PIPERACILLIN SODIUM/TAZOBACTAM 3.375 GM in DEXTROSE 5% IN WATER 50 ML IV SCH ×3 (06:03→17:15)
[2018-09-23] MEDS: 0.9 % SODIUM CHLORIDE 10 ML SYRINGE IV SCH ×3 (06:06→22:04)
[2018-09-23] MEDS: LEVOTHYROXINE 50 MCG TABLET PO SCH (06:48)
[2018-09-23 07:18] LABS: ALT/SGPT 46 U/l (0-40); Albumin 2.4 gm/dL (3.2-5.2); Albumin/Globulin Ratio 1.2 (1.0-2.3); Alkaline Phosphatase 48 U/L (39-117); Bilirubin,Direct 0.7 mg/dL (0.0-0.3); Blood Urea Nitrogen 12 mg/dl (8-23); Gamma Glutamyl Transpeptidase 31 U/L (5-36); Uric Acid 1.1 mg/dL (2.5-8.0)
[2018-09-23] MEDS: MYRBETRIQ 50 MG PO SCH (07:21)
[2018-09-23] MEDS ORDERED: POTASSIUM PHOSPHATE 40 MEQ in DEXTROSE 5% IN WATER 500 ML IV ONE (07:40)
[2018-09-23] MEDS ORDERED: MAGNESIUM SULFATE 32.48 MEQ in DEXTROSE 5% IN WATER 50 ML IV ONE (07:40)
[2018-09-23] MEDS ORDERED: MAGNESIUM SULFATE IN WATER 4 GM/100 ML BAG IV ONE (08:00)
[2018-09-23] MEDS: POTASSIUM PHOSPHATE 40 MEQ in DEXTROSE 5% IN WATER 500 ML IV SCH ×2 (08:23→13:02)
--- NOTE | 2018-09-23 12:35 | General Surgery Progress Note ---
Subjective Patient reports: feels better, pain is less, tolerating liquids well, flatus, bowel movement, afebrile Narrative: Note initiated : 09/23/18 at 12:33 pm Service Date, if different from initiated Date: [] Patient: Isaura Jarrell 72 y/o F admitted on 09/19/18 for abd pain. Chief Complaint: [patient is doing well. She had more flatus and bowel movements.. She denies nausea and is tolerating liquid diet without difficulty.. Her pain is well controlled.. Her electrolytes reveal potassium of 2.9 and phosphorus of 1.3.] Objective Temp Pulse Resp BP Pulse Ox 97.6 F 68 15 154/88 95 09/23/18 11:26 09/23/18 11:26 09/23/18 11:26 09/23/18 11:26 09/23/18 11:26 - Additional Data Intake & Output - Last 24 hours: Intake & Output 09/21/18 09/22/18 09/23/18 09/24/18 05:59 05:59 05:59 05:59 Intake Total 4020 / 4020 4948 / 4948 4798.0909 / 4798.0909 1540 / 1540 Output Total 845 / 845 1225 / 1225 1154 / 1154 400 / 400 Balance 3175 / 3175 3723 / 3723 3644.0909 / 3644.0909 1140 / 1140 Weight 143 lb 8 oz 143 lb 8 oz 155 lb 6.4 oz - General physical appearance well developed, well nourished, no distress - Eyes PERRL, normal ocular movement - ENT normal pinna, normal nares, normal mucosa, no hearing loss, no congestion - Neck no masses, no bruits, trachea midline, no lymphadenopathy, no venous distension - Respiratory normal expansion, normal respiratory effort, clear to auscultation - Cardiovascular Cardiovascular exam: Present: normal rate and rhythm, RRR, +S1, +S2. Absent: JVD, tachycardia - Abdomen tender (mild tenderness of incision but otherwise benign exam;;;;;;;;;;;;;; good active bowel sounds), bowel sounds (present), surgical scars (none), masses (none) - Integumentary no rash, no growths, no abnormal pigmentation - Neurologic normal coordination, normal sensation - Musculoskeletal normal gait, normal posture - Psychiatric oriented to time, oriented to person, oriented to place, speech is normal, memory intact - Labs 09/23/18 04:35 09/23/18 04:35 Diabetes panel 09/23/18 Range/Units 04:35 Sodium 140 (133-145) mmol/L Potassium 2.9 L* (3.3-5.1) mmol/L Chloride 105 (96-108) mmol/L Carbon Dioxide 25 (22-30) mmol/L BUN 12 (8-23) mg/dl Creatinine 0.5 L (0.6-1.1) mg/dl Glucose 91 (70-105) mg/dL Calcium 7.5 L (8.6-10.4) mg/dl AST 52 H (0-37) U/l ALT 46 H (0-40) U/l Alkaline Phosphatase 48 (39-117) U/L Total Protein 4.4 L (5.9-8.4) gm/dL Albumin 2.4 L (3.2-5.2) gm/dL Triglycerides 89 (<150) mg/dl Calcium panel 09/23/18 Range/Units 04:35 Calcium 7.5 L (8.6-10.4) mg/dl Phosphorus 1.3 L (2.7-4.5) mg/dL Albumin 2.4 L (3.2-5.2) gm/dL Pituitary panel 09/23/18 Range/Units 04:35 Sodium 140 (133-145) mmol/L Potassium 2.9 L* (3.3-5.1) mmol/L Chloride 105 (96-108) mmol/L Carbon Dioxide 25 (22-30) mmol/L BUN 12 (8-23) mg/dl Creatinine 0.5 L (0.6-1.1) mg/dl Glucose 91 (70-105) mg/dL Calcium 7.5 L (8.6-10.4) mg/dl Adrenal panel 09/23/18 Range/Units 04:35 Sodium 140 (133-145) mmol/L Potassium 2.9 L* (3.3-5.1) mmol/L Chloride 105 (96-108) mmol/L Carbon Dioxide 25 (22-30) mmol/L BUN 12 (8-23) mg/dl Creatinine 0.5 L (0.6-1.1) mg/dl Glucose 91 (70-105) mg/dL Calcium 7.5 L (8.6-10.4) mg/dl Total Bilirubin 3.1 H (0.0-1.0) mg/dL AST 52 H (0-37) U/l ALT 46 H (0-40) U/l Alkaline Phosphatase 48 (39-117) U/L Total Protein 4.4 L (5.9-8.4) gm/dL Albumin 2.4 L (3.2-5.2) gm/dL Assessment and Plan (1) Partial obstruction of small intestine Status: Acute Assessment and plan: Clinically stable postoperative day #3 Full liquid diet Decrease IV to 75 cc/h Current Visit: Yes (2) Chronic idiopathic constipation Status: Acute Current Visit: Yes (3) Osteoarthritis Status: Chronic Current Visit: No - Time Spent With Patient Total time spent is greater than 50% in coordination of care (as documented) at patient's floor/unit and/or counseling patient:
[2018-09-23] MEDS ORDERED: oxyCODONE/APAP 5/325MG TABLET PO PRN (12:36)
[2018-09-23] MEDS ORDERED: diphenhydrAMINE 25 MG CAPSULE PO PRN (13:50)
[2018-09-23] MEDS: diphenhydrAMINE 25 MG CAPSULE PO SCH (21:33)
[2018-09-23] MEDS: ACETAMINOPHEN 325 MG TABLET PO PRN (21:33)
[2018-09-24] MEDS: PIPERACILLIN SODIUM/TAZOBACTAM 3.375 GM in DEXTROSE 5% IN WATER 50 ML IV SCH ×3 (00:06→13:59)
[2018-09-24] MEDS: METOCLOPRAMIDE 10 MG/2 ML VIAL IV SCH ×4 (00:09→18:04)
[2018-09-24] MEDS: 0.9 % SODIUM CHLORIDE 1,000 ML IV SCH (00:10)
[2018-09-24] MEDS: 0.9 % SODIUM CHLORIDE 10 ML SYRINGE IV SCH ×2 (04:13→17:38)
[2018-09-24 07:02] LABS: Basophils # (Auto) 0 K/mcL (0.0-0.3); Basophils % (Auto) 0.5 % (0.0-2.0); Eosinophils # (Auto) 0.2 K/mcL (0.0-0.7); Eosinophils % (Auto) 3.2 % (0.0-7.0); Lymphocytes # (Auto) 1.4 K/mcL (1.5-4.8); Lymphocytes % (Auto) 24.5 % (15.5-49.0); Mean Cell Volume 95.7 fL (80.0-100.0); Mean Corpuscular HGB Conc 33.2 g/dL (31.0-36.0); Mean Corpuscular Hemoglobin 31.8 pg (26.0-34.0); Monocytes # (Auto) 0.5 K/mcL (0.1-0.9); Monocytes % (Auto) 8.8 % (1.0-12.0); Platelet Count 222 K/mcL (140-440); RBC 3.79 M/mcL (4.00-5.20); Red Cell Distribution Width 14.4 % (11.5-14.5)
[2018-09-24 07:40] LABS: ALT/SGPT 48 U/l (0-40); Albumin 2.4 gm/dL (3.2-5.2); Alkaline Phosphatase 53 U/L (39-117); Bilirubin,Direct 0.4 mg/dL (0.0-0.3); Blood Urea Nitrogen 4 mg/dl (8-23); Gamma Glutamyl Transpeptidase 34 U/L (5-36); Uric Acid 0.8 mg/dL (2.5-8.0)
[2018-09-24] MEDS: LEVOTHYROXINE 50 MCG TABLET PO SCH (07:43)
--- NOTE | 2018-09-24 13:19 | General Surgery Progress Note ---
Subjective Patient reports: feels better, pain is less, flatus, bowel movement, afebrile, other (ppatient developed a rash over back but not of her anterior surface or her extremities) Narrative: Note initiated : 09/24/18 at 1:19 pm Service Date, if different from initiated Date: [] Patient: Isaura Jarrell 72 y/o F admitted on 09/19/18 for abd pain. Chief Complaint: [ppatient continues to improve.. She had multiple bowel movements and has passed copious flatus.. She does have some acid reflux and heartburn. There is mild elevation of systolic blood pressure.. There is no tachycardia] Objective Temp Pulse Resp BP Pulse Ox 98.7 F 68 20 171/94 96 09/24/18 12:00 09/24/18 04:00 09/24/18 12:00 09/24/18 12:00 09/24/18 12:00 - Additional Data Intake & Output - Last 24 hours: Intake & Output 09/22/18 09/23/18 09/24/18 09/25/18 05:59 05:59 05:59 05:59 Intake Total 4948 / 4948 4798.0909 / 4798.0909 3349 / 3349 290 / 290 Output Total 1225 / 1225 1154 / 1154 603 / 603 500 / 500 Balance 3723 / 3723 3644.0909 / 3644.0909 2746 / 2746 -210 / -210 Weight 143 lb 8 oz 155 lb 6.4 oz 156 lb 8 oz - General physical appearance well developed, well nourished, no distress - Eyes PERRL, normal ocular movement - ENT normal pinna, normal nares, normal mucosa, no hearing loss, no congestion - Neck no masses, no bruits, trachea midline, no lymphadenopathy, no venous distension - Respiratory normal expansion, normal respiratory effort, clear to auscultation - Cardiovascular Cardiovascular exam: Present: normal rate and rhythm, RRR, +S1, +S2. Absent: JVD, tachycardia - Abdomen tender (mild incisional tenderness with good active bowel sounds and mild distention), bowel sounds (present), surgical scars (none), masses (none) - Integumentary other ( punctate erythematous slightly raised rash of back but not all of the surfaces) - Neurologic normal coordination, normal sensation - Musculoskeletal normal gait, normal posture - Psychiatric oriented to time ( is), oriented to person, oriented to place, speech is normal, memory intact - Labs 09/24/18 04:55 09/24/18 04:55 Diabetes panel 09/24/18 Range/Units 04:55 Sodium 138 (133-145) mmol/L Potassium 3.4 (3.3-5.1) mmol/L Chloride 104 (96-108) mmol/L Carbon Dioxide 23 (22-30) mmol/L BUN 4 L (8-23) mg/dl Creatinine 0.4 L (0.6-1.1) mg/dl Glucose 84 (70-105) mg/dL Calcium 7.9 L (8.6-10.4) mg/dl AST 46 H (0-37) U/l ALT 48 H (0-40) U/l Alkaline Phosphatase 53 (39-117) U/L Total Protein 4.7 L (5.9-8.4) gm/dL Albumin 2.4 L (3.2-5.2) gm/dL Triglycerides 103 (<150) mg/dl Calcium panel 09/24/18 Range/Units 04:55 Calcium 7.9 L (8.6-10.4) mg/dl Phosphorus 2.2 L (2.7-4.5) mg/dL Albumin 2.4 L (3.2-5.2) gm/dL Pituitary panel 09/24/18 Range/Units 04:55 Sodium 138 (133-145) mmol/L Potassium 3.4 (3.3-5.1) mmol/L Chloride 104 (96-108) mmol/L Carbon Dioxide 23 (22-30) mmol/L BUN 4 L (8-23) mg/dl Creatinine 0.4 L (0.6-1.1) mg/dl Glucose 84 (70-105) mg/dL Calcium 7.9 L (8.6-10.4) mg/dl Adrenal panel 09/24/18 Range/Units 04:55 Sodium 138 (133-145) mmol/L Potassium 3.4 (3.3-5.1) mmol/L Chloride 104 (96-108) mmol/L Carbon Dioxide 23 (22-30) mmol/L BUN 4 L (8-23) mg/dl Creatinine 0.4 L (0.6-1.1) mg/dl Glucose 84 (70-105) mg/dL Calcium 7.9 L (8.6-10.4) mg/dl Total Bilirubin 2.0 H (0.0-1.0) mg/dL AST 46 H (0-37) U/l ALT 48 H (0-40) U/l Alkaline Phosphatase 53 (39-117) U/L Total Protein 4.7 L (5.9-8.4) gm/dL Albumin 2.4 L (3.2-5.2) gm/dL Assessment and Plan (1) Partial obstruction of small intestine Status: Acute Assessment and plan: Discontinue Zosyn Hydrocortisone cream to rash on back Saline lock IV Current Visit: Yes (2) Chronic idiopathic constipation Status: Acute Current Visit: Yes (3) Osteoarthritis Status: Chronic Current Visit: No - Time Spent With Patient Total time spent is greater than 50% in coordination of care (as documented) at patient's floor/unit and/or counseling patient:
[2018-09-24] MEDS: MYRBETRIQ 50 MG PO SCH (13:23)
[2018-09-24] MEDS: ACETAMINOPHEN 325 MG TABLET PO PRN (13:40)
--- NOTE | 2018-09-24 13:46 | XRay Report ---
CLINICAL INFORMATION: Abdominal pain and distention COMPARISON: 09/20/2018 FINDINGS: The stomach, small large bowel are mildly dilated and there is scattered air fluid level on the upright film. Minimal contrast seen within the rectum which is decompressed. No free air. IMPRESSION: Findings most compatible with moderate atypical ileus. Interpreted and Authenticated by: Anirudh Carlton 09/24/18
[2018-09-24] MEDS: PANTOPRAZOLE 40 MG PACKET PO SCH ×2 (13:53→17:38)
[2018-09-24] MEDS: HYDROCORTISONE CRM 1% TUBE 30GM TOPICAL SCH ×2 (17:38→20:49)
[2018-09-24] MEDS: diphenhydrAMINE 25 MG CAPSULE PO SCH (20:49)
[2018-09-25] MEDS: METOCLOPRAMIDE 10 MG/2 ML VIAL IV SCH ×3 (00:35→12:06)
[2018-09-25] MEDS: 0.9 % SODIUM CHLORIDE 10 ML SYRINGE IV SCH ×3 (00:35→14:38)
[2018-09-25] MEDS: LEVOTHYROXINE 50 MCG TABLET PO SCH (07:35)
[2018-09-25] MEDS: PANTOPRAZOLE 40 MG PACKET PO SCH (07:35)
[2018-09-25] MEDS: HYDROCORTISONE CRM 1% TUBE 30GM TOPICAL SCH ×2 (09:13→14:38)
[2018-09-25] MEDS: MYRBETRIQ 50 MG PO SCH (09:14)
--- NOTE | 2018-09-25 14:07 | Discharge Summary ---
Providers - Providers Patient information: Note initiated : 09/25/18 at 2:07 pm Service Date, if different from initiated Date: [] Patient: Isaura Jarrell 72 y/o F admitted on 09/19/18 for abd pain. Chief Complaint: [] Date of admission: 09/19/18 Discharge date: 09/25/18 Attending physician: Angelita Saeed Hospitalization Hospital course: 72-year-old female with history of crampy abdominal pain with nausea and vomiting. Patient admitted on 19 September with findings suggestive of intestinal obstruction.. She has a small bowel follow-through which showed no contrast in the colon after 12 hours. She had major dilation of her bowel. She underwent exploratory laparotomy on 20 September and was found to have extensive adhesive disease with an internal hernia causing obstruction of the mid gut and with obstruction of the terminal ileum due to her adhesions between the ileocolic mesentery and the left ovary.. Adhesion lysis was done patient tolerated the procedure without difficulty. She has progressed and has been advanced to a regular diet. She is having regular bowel movements without difficulty. She denies nausea or vomiting. She is afebrile and her white blood count is normal.. She is stable for discharge.. Discharge diagnosis: small bowel obstruction due to adhesions Secondary discharge diagnosis: Internal hernia with small bowel volvulus Chronic constipation Reason for admission: aabdominal pain nausea and vomiting Procedures: Exploratory laparotomy with adhesiolysis Pertinent studies/significant findings: CT of abdomen and pelvis with contrast Small bowel follow-through with Gastrografin Complications: None Exam Temp Pulse Resp BP Pulse Ox 98.2 F 62 18 129/81 96 09/25/18 11:40 09/25/18 11:40 09/25/18 11:40 09/25/18 11:40 09/25/18 11:40 - General physical appearance well developed, well nourished, no distress - Eyes PERRL, normal ocular movement - ENT normal pinna, normal nares, normal mucosa, no hearing loss, no congestion - Head Head exam IM: Present: atraumatic, normocephalic - Neck no masses, no bruits, trachea midline, no lymphadenopathy, no venous distension - Cardiovascular Cardiovascular exam IM: Present: normal rate and rhythm - Respiratory normal expansion, normal respiratory effort, clear to percussion, clear to auscultation - Abdomen Abdomen: Present: soft, tender (minimal abdominal tenderness; no major distention; active bowel sounds; incision looks good), bowel sounds Hernia: Present: none - Genitourinary Present: normal external genitalia - Integumentary Present: no rash, no growths, no abnormal pigmentation - Neurologic Present: normal coordination, normal sensation - Musculoskeletal Present: normal gait, normal posture - Psychiatric Present: oriented to time, oriented to person, oriented to place, speech is normal, memory intact Discharge Plan - Patient/Caregiver Discharge Instructions Activity: increase activity as tolerated Diet: Regular Diet Additional Instructions: Leave Tegaderm in place until you return to the office Keep scheduled appointment for October 11 - Follow up Plan Follow up with: Angelita Saeed MD [Physician] - 10/06/18 10:15 am Kisha Viramontes DO [Primary Care Provider] - Disposition: Home, Self-Care Prognosis: Good Rehab Potential: Good I certify that the patient requires SNF services.: No Overall status at discharge: patient is progressing back to baseline Pending Studies Resuscitation Status Full Code Diet Regular Diet Start Sat Sep 24 809 Acetaminophen (Tylenol) 650 mg PO Q6HP PRN PRN Reason: Pain Last Admin: 09/24/18 13:40 Dose: 650 mg Admin: 09/23/18 21:33 Dose: 650 mg Diphenhydramine HCl (Benadryl) 50 mg PO HS [facility] Last Admin: 09/24/18 20:49 Dose: 50 mg Admin: 09/23/18 21:33 Dose: 50 mg Diphenhydramine HCl (Benadryl) 25 mg PO Q6HP PRN PRN Reason: Allergic Symptoms Last Admin: 09/23/18 14:20 Dose: 25 mg Hydrocortisone (Hc Crm 1%) 1 dose TOPICAL TID [facility] Last Admin: 09/25/18 09:13 Dose: 1 dose Admin: 09/24/18 20:49 Dose: 1 dose Admin: 09/24/18 17:38 Dose: 1 dose Hydromorphone HCl (Dilaudid) 1 mg IV Q2HP PRN PRN Reason: PAIN LEVEL > 6 Last Admin: 09/23/18 03:48 Dose: 1 mg Admin: 09/21/18 10:38 Dose: 1 mg Admin: 09/21/18 04:17 Dose: 1 mg Levothyroxine Sodium (Synthroid) 50 mcg PO QAMAC [facility] Last Admin: 09/25/18 07:35 Dose: 50 mcg Admin: 09/24/18 07:43 Dose: 50 mcg Admin: 09/23/18 06:48 Dose: 50 mcg Metoclopramide HCl (Reglan) 10 mg IV Q6 [facility] Last Admin: 09/25/18 12:06 Dose: 10 mg Admin: 09/25/18 05:26 Dose: 10 mg Admin: 09/25/18 00:35 Dose: 10 mg Admin: 09/24/18 18:04 Dose: 10 mg Admin: 09/24/18 13:40 Dose: 10 mg Admin: 09/24/18 05:33 Dose: 10 mg Admin: 09/24/18 00:09 Dose: 10 mg Admin: 09/23/18 17:15 Dose: 10 mg Admin: 09/23/18 11:35 Dose: 10 mg Admin: 09/23/18 06:02 Dose: 10 mg Admin: 09/22/18 23:34 Dose: 10 mg Admin: 09/22/18 17:09 Dose: 10 mg Admin: 09/22/18 12:15 Dose: 10 mg Admin: 09/22/18 05:16 Dose: 10 mg Admin: 09/21/18 23:54 Dose: 10 mg Admin: 09/21/18 17:57 Dose: 10 mg Admin: 09/21/18 12:04 Dose: 10 mg Admin: 09/21/18 05:39 Dose: 10 mg Admin: 09/20/18 23:33 Dose: 10 mg Admin: 09/20/18 17:04 Dose: 10 mg Pantoprazole Sodium (Protonix) 40 mg PO BIDAC [facility] Last Admin: 09/25/18 07:35 Dose: 40 mg Admin: 09/24/18 17:38 Dose: 40 mg Admin: 09/24/18 13:53 Dose: 40 mg Myrbetriq [ Mirabegron] 50 Mg Tab 1 dose PO DAILY [facility] Last Admin: 09/25/18 09:14 Dose: Admin: 09/24/18 13:23 Dose: Admin: 09/23/18 07:21 Dose: Not Given Sodium Chloride (Saline Flush) 10 ml IV Q8 [facility] Last Admin: 09/25/18 05:26 Dose: 10 ml Admin: 09/25/18 00:35 Dose: 10 ml Admin: 09/24/18 17:38 Dose: 10 ml Admin: 09/24/18 04:13 Dose: Not Given Admin: 09/23/18 22:04 Dose: Not Given Admin: 09/23/18 12:10 Dose: Not Given Admin: 09/23/18 06:06 Dose: 10 ml Admin: 09/22/18 22:07 Dose: 10 ml Admin: 09/22/18 12:15 Dose: Not Given Admin: 09/22/18 06:28 Dose: Not Given Admin: 09/21/18 21:39 Dose: 10 ml Admin: 09/21/18 13:20 Dose: Not Given Admin: 09/21/18 05:39 Dose: 10 ml Admin: 09/20/18 20:16 Dose: Not Given Shift Summary 09/25/18 03:18 Shift Summary by Yoko Robertson. A&Ox4. Has denied pain when questioned tonight. Pt. has urinary urgency and incontinence, reports similar situation when was at home. Wearing brief at NOC. Up to bathroom ad purvi, calls for assistance getting SCD's off/on. IV to L FA is SL. Midline incision to abdomen. Dressing is dry and intact. Pt. is passing flatus and had a very small soft formed BM tonight. Initialized on 09/25/18 03:18 - END OF NOTE
== END 2018-09-25 15:50 | disposition home or self-care (01) | DRG 337 ==
LOC: ED 12:21 → MEDSUR 15:32
PROVIDERS: ADMIT Family Medicine Adult Medicine; ATTEND Family Medicine Adult Medicine
CPT/HCPCS: 80047; 85014; J0131; J1170; J1200; J1885; J2001; J2250; J2370; J2405; J2543; J2765; J3010; J7030; J7060; J7120; L1270; Q9967